=== PATIENT | female | born 1980 | race Caucasian/White ===

== ENCOUNTER 2022-11-11 10:49 | Observation (INO) | payer BC ==
[2022-11-12] MEDS ORDERED: Lactated Ringers 1,000 ML IV ONE ×2 (06:33→07:04)
[2022-11-12] MEDS ORDERED: Transderm Scop 1.5MG Patch TOP PRN (06:44)
[2022-11-12] MEDS ORDERED: Pepcid 20 MG VIAL IV ONE ×2 (06:44→07:52)
[2022-11-12] MEDS ORDERED: CEFAZOLIN 2 GM-D5W BAG** 2 GM/50 ML ML IV SCH (07:00)
[2022-11-12] MEDS ORDERED: Lactated Ringers 1,000 ML IV SCH (07:00)
[2022-11-12 07:02] LABS: HCG URINE TEST NEGATIVE (NEGATIVE)
[2022-11-12 07:26] LABS: Hematocrit 36.7 % (35-47); Hemoglobin 11.6 g/dL (12.0-16.0); Mean Corpuscular Hemoglobin 28.4 pg (26-32); Mean Corpuscular Hgb Concent. 31.6 g/dL (32-36); Mean Platelet Volume 9.8 fL (7.5-11.0); Platelet Count 256 x10^3/uL (150-450); Red Blood Count 4.08 x10^6/uL (4.1-5.4); Red Cell Distribution Width 13.8 % (11.5-14.0)
[2022-11-12 07:37] LABS: ALBUMIN 4.1 g/dL (3.5-5.0); ALKALINE PHOSPHATASE 68 U/L (38-126); ANION GAP 11.5 MEQ/L (5-15); BLOOD UREA NITROGEN 9 mg/dL (7-17); CHLORIDE 108 mmol/L (98-107); Calcium 8.5 mg/dL (8.4-10.2); Carbon Dioxide 26 mmol/L (22-30); Creatinine 1 0.71 mg/dL (0.52-1.04); EST GLOMERULAR FILTRATION RATE > 60.0 ML/MIN; Glucose 87 mg/dL (74-106); Potassium 3.9 mmol/L (3.5-5.1); SGOT/AST 33 U/L (14-36); SGPT/ALT 28 U/L (0-35); SODIUM 142 mmol/L (137-145); Total Protein 7.7 g/dL (6.3-8.2)
[2022-11-12] MEDS ORDERED: Transderm Scop 1.5MG Patch ONE (07:52)
[2022-11-12] MEDS ORDERED: CEFAZOLIN 2 GM-D5W BAG** 2 GM/50 ML ML IV ONE (07:54)
[2022-11-12 08:00] LABS: INFLUENZA A NEGATIVE (NEGATIVE); INFLUENZA B NEGATIVE (NEGATIVE); RESPIRATORY SYNCTIAL VIRUS NEGATIVE (NEGATIVE); SARS-CoV-2 Xpert Express NEGATIVE (NEGATIVE)
[2022-11-12 08:06] LABS: ABO TYPING A; Antibody Screen NEGATIVE (NEGATIVE); RH TYPING POSITIVE
[2022-11-12] MEDS ORDERED: Astramorph-Pf 5 MG/10 ML ONE (08:31)
[2022-11-12] MEDS ORDERED: Decadron 4 MG INJ ONE ×2 (08:31→08:52)
[2022-11-12] MEDS ORDERED: Zofran 4 MG/2 ML VIAL ONE ×2 (08:31)
[2022-11-12] MEDS ORDERED: Versed 2 MG/2 ML Injection ONE (08:31)
[2022-11-12] MEDS ORDERED: Zemuron 100 MG/10 ML ONE (08:35)
[2022-11-12] MEDS ORDERED: DIPRIVAN 200 MG/20 ML IV ONE (08:35)
[2022-11-12] MEDS ORDERED: SUBLIMAZE 100 MCG/2 ML ONE (08:37)
[2022-11-12] MEDS ORDERED: Xylocaine-Mpf 2% 5 Ml Vial ONE (08:37)
[2022-11-12] MEDS ORDERED: DEXMEDETOMIDINE 80 MCG/20ML-NS IV ONE (08:52)
[2022-11-12] MEDS ORDERED: Marcaine 0.5%/Epinephrine 10 ML ONE (08:52)
[2022-11-12] MEDS ORDERED: OFIRMEV 100 ML IV ONE (08:58)
[2022-11-12] MEDS ORDERED: Magnesium Sulfate 1 GM/2 ML VIAL ONE (08:58)
[2022-11-12] MEDS ORDERED: Ketamine HCl 50 MG/ML ONE (09:01)
[2022-11-12] MEDS ORDERED: BRIDION 200MG/2ML IV ONE (09:08)
[2022-11-12] MEDS ORDERED: ROBINUL ONE (09:11)
[2022-11-12] MEDS ORDERED: Ephedrine Sulfate 50 MG/ML ONE (09:14)
[2022-11-12] MEDS ORDERED: Sodium Chloride 0.9% 10 ML FLUSH Syringe IJ PRN (11:00)
[2022-11-12] MEDS ORDERED: DEMEROL 50 MG IV PRN (11:00)
[2022-11-12] MEDS ORDERED: Zofran 4 MG/2 ML VIAL IV PRN ×2 (11:00→12:07)
[2022-11-12] MEDS ORDERED: MORPHINE SULFATE 2 MG INJ IV PRN (11:00)
[2022-11-12] MEDS ORDERED: Nubain 10 MG/ML IV PRN (11:00)
[2022-11-12] MEDS ORDERED: BENADRYL 50 MG/ML IV PRN (11:00)
[2022-11-12] MEDS ORDERED: Narcan 0.4 MG/ML IV PRN (11:00)
[2022-11-12] MEDS ORDERED: CLARITIN 10 MG PO PRN (11:00)
[2022-11-12] MEDS ORDERED: Hydromorphone 1 mg/ml Injection ONE (11:09)
[2022-11-12] MEDS ORDERED: TORAdol 30 mg Injection IV PRN (12:09)
[2022-11-12] MEDS ORDERED: NON-FORMULARY ITEM (Omeprazole [Omeprazole] 40 MG Capsule.Dr) PO PRN (12:13)
[2022-11-12] MEDS ORDERED: ADALIMUMAB 40 MG/0.8 ML SQ SCH (12:15)
[2022-11-12] MEDS ORDERED: Protonix 40MG Tablet PO PRN (12:16)
[2022-11-12] MEDS ORDERED: MEDICATION INTERVENTION MC SCH (12:30)
[2022-11-12 13:21] LABS: Hematocrit 34.8 % (35-47); Hemoglobin 10.4 g/dL (12.0-16.0); Mean Cell Volume 91.8 fL (78-100); Mean Corpuscular Hemoglobin 27.4 pg (26-32); Mean Corpuscular Hgb Concent. 29.9 g/dL (32-36); Mean Platelet Volume 9.8 fL (7.5-11.0); Platelet Count 219 x10^3/uL (150-450); Red Blood Count 3.79 x10^6/uL (4.1-5.4); Red Cell Distribution Width 13.6 % (11.5-14.0); White Blood Count 10.8 x10^3/uL (4.0-10.5)
[2022-11-12] MEDS: Reglan 10 MG/2 ML IV SCH ×2 (13:54→21:36)
[2022-11-12] MEDS: CEFAZOLIN 2 GM-D5W BAG** 2 GM/50 ML ML IV SCH ×2 (13:54→21:36)
[2022-11-12] MEDS: Mylicon 80MG PO SCH ×2 (13:54→21:36)
[2022-11-12] MEDS: Docusate Sodium 100 MG PO SCH ×2 (13:54→21:36)
[2022-11-12 18:08] LABS: Hematocrit 33.7 % (35-47); Hemoglobin 10.3 g/dL (12.0-16.0); Mean Cell Volume 92.6 fL (78-100); Mean Corpuscular Hemoglobin 28.3 pg (26-32); Mean Corpuscular Hgb Concent. 30.6 g/dL (32-36); Mean Platelet Volume 9.4 fL (7.5-11.0); Platelet Count 217 x10^3/uL (150-450); Red Blood Count 3.64 x10^6/uL (4.1-5.4); Red Cell Distribution Width 13.7 % (11.5-14.0); White Blood Count 11.1 x10^3/uL (4.0-10.5)
[2022-11-12] MEDS: Lactated Ringers 1,000 ML IV SCH ×3 (21:35→22:44)
[2022-11-12] MEDS: PERCOCET TABLET 5/325MG PO PRN (21:48)
[2022-11-13] MEDS: PERCOCET TABLET 5/325MG PO PRN ×2 (03:55→08:47)
[2022-11-13] MEDS: Reglan 10 MG/2 ML IV SCH (05:22)
[2022-11-13] MEDS: Mylicon 80MG PO SCH (05:22)
[2022-11-13 05:24] LABS: ALBUMIN 3.2 g/dL (3.5-5.0); ALKALINE PHOSPHATASE 52 U/L (38-126); ANION GAP 12.4 MEQ/L (5-15); BLOOD UREA NITROGEN 7 mg/dL (7-17); CHLORIDE 105 mmol/L (98-107); Carbon Dioxide 25 mmol/L (22-30); Creatinine 1 0.63 mg/dL (0.52-1.04); EST GLOMERULAR FILTRATION RATE > 60.0 ML/MIN; Glucose 149 mg/dL (74-106); SGOT/AST 26 U/L (14-36); SGPT/ALT 20 U/L (0-35); SODIUM 138 mmol/L (137-145); Total Protein 6.2 g/dL (6.3-8.2)
[2022-11-13] MEDS: Lactated Ringers 1,000 ML IV SCH (05:35)
--- NOTE | 2022-11-13 07:48 | PCM.NOTE ---
Date and Time: 11/13/2245 Subjective Assessment: pod 1 pt resting in bed and doing well. able to ambulate and tolerate diet vss afebrile abd; soft incision c/d/intact hgb; 10 a/p sp baldomero b/ salpingectomy left ovarian cystectomy doing very well stable for discharge should fu in office in 2 wks Objective Exam Wound Assessment: Skin/Wound Assessment Wound/Incision Assessment Start: 11/12/22 11:53 Text: Status: Active Freq: Q4H Protocol: Document 11/13/22 04:00 LB (Rec: 11/13/22 04:27 LB [id number]) Wound/Incision Assessment Lower Abdomen Wound Assessment Shift Assessment Wound Type Incision General Appearance Well Approximated,Open to air Surrounding Tissue [place] Wound Photo Photo Taken No OBJECTIVE DATA Vital Signs: Vital Signs - 24 hr Temp Pulse Resp BP Pulse Ox 11/13/22 04:00 98.1 F 79 16 103/52 94 L 11/13/22 00:00 16 11/12/22 23:29 98 F 94 H 16 110/55 92 L 11/12/22 20:00 16 11/12/22 19:54 98.6 F 97 H 16 118/66 93 L 11/12/22 16:00 14 11/12/22 15:38 98.2 F 50 L 16 109/60 96 11/12/22 14:30 96.9 F 95 H 17 105/57 98 11/12/22 13:30 72 16 110/57 98 11/12/22 13:00 96.8 F 62 16 121/64 98 11/12/22 12:45 96.8 F 61 15 112/56 98 11/12/22 12:20 96.6 F 57 L 16 105/55 97 11/12/22 12:05 66 17 105/54 97 11/12/22 12:03 97.2 F 63 12 105/54 11/12/22 11:50 96.8 F 71 16 104/57 96 11/12/22 07:58 98.1 F 81 18 143/89 93 L Pain Assessment - Last Documented Pain Intensity 0 Pain Scale Used 0-10 Pain Scale Intake and Output: Intake & Output 11/10/22 11/11/22 11/12/22 11/13/22 11:59 11:59 11:59 11:59 Intake Total 2888 Output Total 4000 Balance -1112 Weight 80.9 kg 81.8 kg Lab Results: Lab Results-Last 24 Hours 11/12/22 11/12/22 11/12/22 Range/Units 07:12 07:23 13:13 WBC 10.8 H (4.0-10.5) x10^3/uL RBC 3.79 L (4.1-5.4) x10^6/uL Hgb 10.4 L (12.0-16.0) g/dL Hct 34.8 L (35-47) % MCV 91.8 (78-100) fL MCH 27.4 (26-32) pg MCHC 29.9 L (32-36) g/dL RDW 13.6 (11.5-14.0) % Plt Count 219 (150-450) x10^3/uL MPV 9.8 (7.5-11.0) fL Sodium (137-145) mmol/L Potassium (3.5-5.1) mmol/L Chloride (98-107) mmol/L Carbon Dioxide (22-30) mmol/L Anion Gap (5-15) MEQ/L BUN (7-17) mg/dL Creatinine (0.52-1.04) mg/dL Estimated GFR ML/MIN Glucose (74-106) mg/dL Calcium (8.4-10.2) mg/dL Total Bilirubin (0.2-1.3) mg/dL AST (14-36) U/L ALT (0-35) U/L Alkaline Phosphatase (38-126) U/L Serum Total Protein (6.3-8.2) g/dL Albumin (3.5-5.0) g/dL Influenza Type A Ag NEGATIVE (NEGATIVE) Influenza Type B Ag NEGATIVE (NEGATIVE) RSV (PCR) NEGATIVE (NEGATIVE) SARS-CoV-2 (PCR) NEGATIVE (NEGATIVE) ABO Group A Rh Factor POSITIVE Antibody Screen NEGATIVE (NEGATIVE) 11/12/22 11/13/22 Range/Units 18:05 04:28 WBC 11.1 H (4.0-10.5) x10^3/uL RBC 3.64 L (4.1-5.4) x10^6/uL Hgb 10.3 L (12.0-16.0) g/dL Hct 33.7 L (35-47) % MCV 92.6 (78-100) fL MCH 28.3 (26-32) pg MCHC 30.6 L (32-36) g/dL RDW 13.7 (11.5-14.0) % Plt Count 217 (150-450) x10^3/uL MPV 9.4 (7.5-11.0) fL Sodium 138 (137-145) mmol/L Potassium 4.0 (3.5-5.1) mmol/L Chloride 105 (98-107) mmol/L Carbon Dioxide 25 (22-30) mmol/L Anion Gap 12.4 (5-15) MEQ/L BUN 7 (7-17) mg/dL Creatinine 0.63 (0.52-1.04) mg/dL Estimated GFR > 60.0 ML/MIN Glucose 149 H (74-106) mg/dL Calcium 8.0 L (8.4-10.2) mg/dL Total Bilirubin 0.30 (0.2-1.3) mg/dL AST 26 (14-36) U/L ALT 20 (0-35) U/L Alkaline Phosphatase 52 (38-126) U/L Serum Total Protein 6.2 L (6.3-8.2) g/dL Albumin 3.2 L (3.5-5.0) g/dL Influenza Type A Ag (NEGATIVE) Influenza Type B Ag (NEGATIVE) RSV (PCR) (NEGATIVE) SARS-CoV-2 (PCR) (NEGATIVE) ABO Group Rh Factor Antibody Screen (NEGATIVE) Assessment/Plan (1) Adenomyosis Current Visit: Yes Status: Acute Code(s): N80.03 - ADENOMYOSIS OF THE UTERUS (2) Secondary dysmenorrhea Current Visit: Yes Status: Acute Code(s): N94.5 - SECONDARY DYSMENORRHEA (3) Abnormal uterine bleeding Current Visit: Yes Status: Acute Code(s): N93.9 - ABNORMAL UTERINE AND VAGINAL BLEEDING, UNSPECIFIED (4) Dyspareunia Current Visit: Yes Status: Acute Code(s): [id number] - (5) Dyspareunia due to medical condition in female Current Visit: Yes Status: Acute Code(s): N94.19 - OTHER SPECIFIED DYSPAREUNIA (6) S/P total abdominal hysterectomy Current Visit: Yes Status: Acute Code(s): Z90.710 - ACQUIRED ABSENCE OF BOTH CERVIX AND UTERUS (7) S/P ovarian cystectomy Current Visit: Yes Status: Acute Code(s): Z98.890 - OTHER SPECIFIED POSTPROCEDURAL STATES; Z87.42 - PERSONAL HISTORY OF OTH DISEASES OF THE FEMALE GENITAL TRACT
--- NOTE | 2022-11-13 07:52 | PCM.DS ---
Discharge Summary Date of Admission: 11/12/22 06:46 Admitting Physician: LEX AKHTAR DO Primary Care Provider: TAHMINA MAJOR Allergies Allergies No Known Drug Allergies Allergy (Verified 11/12/22 07:04) Hospital Summary - Hospital Course Hospital Course: pt admitted on november 12 for undergoing total abdominal hysterectomy bilateral salpingectomy and left ovarian cystectomy secondary to adenomyosis, abnormal uterine bleeding, secondary dysmenorrhea, dyspareunia, and left ovarian cyst. pt underwent procedure without complication and was able to ambulate and tolerate diet. pt had stable hgb at 10.3 and at this time stable for discharge. all questions answered to her satisfaction and was advised to fu in office in 2 wks. pt given norco for pain management. - Vitals & Intake/Output Vital Signs: Vital Signs Temperature 98.1 F 11/13/22 04:00 Pulse Rate 79 11/13/22 04:00 Respiratory Rate 16 11/13/22 04:00 Blood Pressure 103/52 11/13/22 04:00 O2 Sat by Pulse Oximetry 94 L 11/13/22 04:00 Intake & Output: Intake & Output 11/10/22 11/11/22 11/12/22 11/13/22 11:59 11:59 11:59 11:59 Intake Total 2888 Output Total 4000 Balance -1112 Weight 80.9 kg 81.8 kg - Lab Result Diagrams: 11/12/22 18:05 11/13/22 04:28 Lab Results-Last 24 Hrs: Lab Results-Last 24 Hours 11/12/22 11/12/22 11/12/22 Range/Units 07:12 07:23 13:13 WBC 10.8 H (4.0-10.5) x10^3/uL RBC 3.79 L (4.1-5.4) x10^6/uL Hgb 10.4 L (12.0-16.0) g/dL Hct 34.8 L (35-47) % MCV 91.8 (78-100) fL MCH 27.4 (26-32) pg MCHC 29.9 L (32-36) g/dL RDW 13.6 (11.5-14.0) % Plt Count 219 (150-450) x10^3/uL MPV 9.8 (7.5-11.0) fL Sodium (137-145) mmol/L Potassium (3.5-5.1) mmol/L Chloride (98-107) mmol/L Carbon Dioxide (22-30) mmol/L Anion Gap (5-15) MEQ/L BUN (7-17) mg/dL Creatinine (0.52-1.04) mg/dL Estimated GFR ML/MIN Glucose (74-106) mg/dL Calcium (8.4-10.2) mg/dL Total Bilirubin (0.2-1.3) mg/dL AST (14-36) U/L ALT (0-35) U/L Alkaline Phosphatase (38-126) U/L Serum Total Protein (6.3-8.2) g/dL Albumin (3.5-5.0) g/dL Influenza Type A Ag NEGATIVE (NEGATIVE) Influenza Type B Ag NEGATIVE (NEGATIVE) RSV (PCR) NEGATIVE (NEGATIVE) SARS-CoV-2 (PCR) NEGATIVE (NEGATIVE) ABO Group A Rh Factor POSITIVE Antibody Screen NEGATIVE (NEGATIVE) 11/12/22 11/13/22 Range/Units 18:05 04:28 WBC 11.1 H (4.0-10.5) x10^3/uL RBC 3.64 L (4.1-5.4) x10^6/uL Hgb 10.3 L (12.0-16.0) g/dL Hct 33.7 L (35-47) % MCV 92.6 (78-100) fL MCH 28.3 (26-32) pg MCHC 30.6 L (32-36) g/dL RDW 13.7 (11.5-14.0) % Plt Count 217 (150-450) x10^3/uL MPV 9.4 (7.5-11.0) fL Sodium 138 (137-145) mmol/L Potassium 4.0 (3.5-5.1) mmol/L Chloride 105 (98-107) mmol/L Carbon Dioxide 25 (22-30) mmol/L Anion Gap 12.4 (5-15) MEQ/L BUN 7 (7-17) mg/dL Creatinine 0.63 (0.52-1.04) mg/dL Estimated GFR > 60.0 ML/MIN Glucose 149 H (74-106) mg/dL Calcium 8.0 L (8.4-10.2) mg/dL Total Bilirubin 0.30 (0.2-1.3) mg/dL AST 26 (14-36) U/L ALT 20 (0-35) U/L Alkaline Phosphatase 52 (38-126) U/L Serum Total Protein 6.2 L (6.3-8.2) g/dL Albumin 3.2 L (3.5-5.0) g/dL Influenza Type A Ag (NEGATIVE) Influenza Type B Ag (NEGATIVE) RSV (PCR) (NEGATIVE) SARS-CoV-2 (PCR) (NEGATIVE) ABO Group Rh Factor Antibody Screen (NEGATIVE) Discharge Exam Wound Assessment: Skin/Wound Assessment Wound/Incision Assessment Start: 11/12/22 11:53 Text: Status: Active Freq: Q4H Protocol: Document 11/13/22 04:00 LB (Rec: 11/13/22 04:27 LB [id number]) Wound/Incision Assessment Lower Abdomen Wound Assessment Shift Assessment Wound Type Incision General Appearance Well Approximated,Open to air Surrounding Tissue [place] Wound Photo Photo Taken No Final Diagnosis/Problem List - Final Discharge Diagnosis/Problem (1) Adenomyosis Current Visit: Yes Status: Acute Code(s): N80.03 - ADENOMYOSIS OF THE UTERUS (2) Secondary dysmenorrhea Current Visit: Yes Status: Acute Code(s): N94.5 - SECONDARY DYSMENORRHEA (3) Abnormal uterine bleeding Current Visit: Yes Status: Acute Code(s): N93.9 - ABNORMAL UTERINE AND VAGINAL BLEEDING, UNSPECIFIED (4) Dyspareunia Current Visit: Yes Status: Acute Code(s): [id number] - (5) Dyspareunia due to medical condition in female Current Visit: Yes Status: Acute Code(s): N94.19 - OTHER SPECIFIED DYSPAREUNIA (6) S/P total abdominal hysterectomy Current Visit: Yes Status: Acute Code(s): Z90.710 - ACQUIRED ABSENCE OF BOTH CERVIX AND UTERUS (7) S/P ovarian cystectomy Current Visit: Yes Status: Acute Code(s): Z98.890 - OTHER SPECIFIED POSTPROCEDURAL STATES; Z87.42 - PERSONAL HISTORY OF OTH DISEASES OF THE FEMALE GENITAL TRACT - Discharge Disposition: Home, Self-Care Condition: Stable Prescriptions: New Hydrocodone/Acetaminophen [Hydrocodone-Acetamin 5-325 mg] 1 tab PO Q6HPRN PRN #20 tablet MDD 4 PRN Reason: Pain No Action Omeprazole 40 mg PO DAILY PRN PRN PRN Reason: Stomach Upset Adalimumab [Humira Pen] 40 mg SQ UD Cyanocobalamin (Vitamin B-12) [Cyanocobalamin Injection] 1,000 mcg IJ UD Follow up with: TAHMINA MAJOR [Primary Care Provider] - LEX AKHTAR DO [ACTIVE STAFF] - 2 weeks (no heavy lifting may take shower but no bath keep incision clean and dry should call me for any issues that may arise)
--- NOTE | 2022-11-13 07:57 | OP ---
SURGERY DATE/TIME: 11/12/2022 0906 PREOPERATIVE DIAGNOSIS: Adenomyosis secondary dysmenorrhea, abnormal uterine bleeding, and dyspareunia. POSTOPERATIVE DIAGNOSIS: Adenomyosis secondary dysmenorrhea, abnormal uterine bleeding, and dyspareunia with left ovarian cyst. PROCEDURES: 1) Total abdominal hysterectomy. 2) Bilateral salpingectomy. 3) Left ovarian cystectomy. SURGEON: Alex Man D.O. FACILITIES AND GROUNDS DIRECTOR: Rosario Silverman surgical clinical reviewer. ANESTHESIA: General. ESTIMATED BLOOD LOSS: 50 cc. COMPLICATIONS: None. INDICATIONS: The risks, benefits, indications and alternatives of the procedure were reviewed with the patient prior to the procedure. The patient understood the risk of infection, bleeding, bowel injury, bladder injury, ureteral injury, uterine perforation, pelvic infection and thromboembolic disorder associated with the surgery and desires to have the surgery as a possible means to alleviate her current medical condition. DESCRIPTION OF PROCEDURE AND FINDINGS: At this point the patient is taken to the operating room, placed in the supine position, given general anesthesia, prepared and draped in the usual sterile fashion. A Pfannenstiel incision was made approximately 2 cm above the symphysis pubis and extended sharply through the rectus fascia. The fascia was then incised bilaterally with curved Kiran scissors and the muscle of the anterior abdominal wall were in the midline by sharp and blunt dissection. The peritoneum was then grasped between two pickups elevated and entered sharply with Metzenbaum scissors. The pelvis is then examined and noted to have an approximately 9 to 10 week size uterus. An O'Raymond-O'Bruno retractor was placed into the incision and the bowel packed away with moist laparotomy sponges. At this point the uterus was elevated using a tenaculum. From this point the LigaSure was used and there was noted a left ovarian cyst which at this point the LigaSure was placed at the base of the cyst and excised in its entirety without complication and the ovarian surface was closed with 2-0 Vicryl suture. Hemostasis was obtained. Again, the Cathi clamp was used and placed over the left utero-ovarian ligament and was clamped, coagulated and cut and taken down to the round ligament towards the uterine vasculature where it was skeletonized on its side and a bladder flap developed on its side. The same procedure was performed on the right side where the LigaSure was placed in the right utero-ovarian ligament clamped, coagulated and cut and taken down to the round ligament towards the uterine vasculature where it to was skeletonized and a bladder flap developed on its side. Again, the anterior lip of the broad ligament was incised along the bladder reflection on both sides. The bladder was then gently dissected off the lower uterine segment and the cervix with a sponge stick. From this point as mentioned the uterine arteries were skeletonized bilaterally and then were clamped with Cathi clamps transected and suture ligated with 0 Vicryl suture. Again hemostasis was assured. The uterosacral ligaments were clamped on both sides, transected and suture ligated in similar fashion. The cervix and the uterus were then amputated with cautery. The vaginal cuff angles were closed with figure-of-8 sutures of 0 Vicryl and transected ipsilateral Cardinal ligaments. The remainder of the vaginal cuff was closed with a series of interrupted 0 Vicryl figure-of-8 sutures. Hemostasis was assured. The pelvis was then irrigated copiously with warm normal saline. All lap, sponge and instruments were then removed from the patient's abdomen. The fascia was closed with running 0 Vicryl and hemostasis is assured. The muscles were then repaired and closed with 2-0 chromic suture and the skin was closed with absorbable dominga called INSORB. Sponge, lap, needle and instruments counts were correct x2. The patient was then taken to the recovery room in stable condition.
[2022-11-13] MEDS: Docusate Sodium 100 MG PO SCH (08:35)
[2022-11-13] MEDS ORDERED: ENOXAPARIN SODIUM SQ SCH (09:00)
[2022-11-13] MEDS ORDERED: HOLD NARCOTIC ANALGESICS AND SEDATIVES X24 HR MC SCH (10:00)
[2022-11-13] MEDS ORDERED: NORCO 5/325 MG PO PRN (12:19)
[2022-11-13 12:23] VITALS: BP 117/55; PULSE 73; O2SAT 93
[2022-11-15] MEDS ORDERED: Cyanocobalamin B-12 1000 MCG/ML IJ SCH (10:00)
== END 2022-11-13 12:50 | disposition home or self-care (01) ==
LOC: SDC 10:49 → INTOOBSV 11-12 06:46 → MED SURG 11-12 06:46 → EDSTATUS 11-12 10:51
PROVIDERS: ADMIT Obstetrics & Gynecology; ATTEND Obstetrics & Gynecology
DX: N80.03 Adenomyosis of the uterus (principal); N94.5 Secondary dysmenorrhea; N93.9 Abnormal uterine and vaginal bleeding, unspecified; N94.19 Other specified dyspareunia; Z90.710 Acquired absence of both cervix and uterus; Z20.828 Contact with and (suspected) exposure to other viral communicable diseases
CPT/HCPCS: 0241U; 36415; 58150; 58925; 64488; 76937; 80053; 81025; 85027; 86850; 86900; 86901; 87086; 87101; G0378; J0690; J1100; J1170; J1650; J1885; J2250; J2274; J2405; J2704; J3010; J3475; A9270-GY